=== PATIENT | female | born 1960 | race Two or more races ===

== ENCOUNTER 2020-10-03 06:57 | Inpatient (IN) | payer OTHER ==
[~2020-10-03] VITALS: Ht 165.1 cm; Wt 69.4 kg
== END 2020-10-05 14:28 | disposition home or self-care (01) | DRG 394 ==
LOC: ER 06:57 → SEC-K 10:00 → SURH 10:00
PROVIDERS: ADMIT Colon & Rectal Surgery; ATTEND Colon & Rectal Surgery
PROC: 0DBH8ZX Excision of Cecum, Via Natural or Artificial Opening Endoscopic, Diagnostic (ICD-10-PCS; principal; 2020-10-05)
PROC: 0DBC8ZX Excision of Ileocecal Valve, Via Natural or Artificial Opening Endoscopic, Diagnostic (ICD-10-PCS; 2020-10-05)
PROC: 0DBL8ZX Excision of Transverse Colon, Via Natural or Artificial Opening Endoscopic, Diagnostic (ICD-10-PCS; 2020-10-05)
PROC: 0DBN8ZX Excision of Sigmoid Colon, Via Natural or Artificial Opening Endoscopic, Diagnostic (ICD-10-PCS; 2020-10-05)
DX: D12.0 Benign neoplasm of cecum (principal); A04.72 Enterocolitis due to Clostridium difficile, not specified as recurrent; K62.89 Other specified diseases of anus and rectum